=== PATIENT | female | born 2000 | race Caucasian/White ===

== ENCOUNTER 2020-08-24 12:34 | Emergency (ER) | payer MEDICAID ==
--- NOTE | 2020-08-24 13:28 | EDM.PDOC ---
ED HPI GENERAL MEDICAL PROBLEM - General Chief Complaint: General Stated Complaint: REACTIONS TO NEW MEDS Time Seen by Provider: 08/24/20 13:16 Source of Information: Reports: Patient, RN Notes Reviewed History Limitations: Reports: No Limitations - History of Present Illness INITIAL COMMENTS - FREE TEXT/NARRATIVE: 19-year-old female presents emergency department today with concerns about drug reaction. She was recently started on Abilify she has taken a total of 3 doses. She states this drug has increased her anxiety caused insomnia is having muscle twitching as she feels like it is hard for her to breathe she has some hot and cold flashes some flushing in her face. She did contact the physician who prescribed the medication unfortunately was unavailable nurses line recommended that she report to the emergency department for further evaluation - Related Data Allergies Allergy/AdvReac Type Severity Reaction Status Date / Time No Known Allergies Allergy Verified 08/24/20 12:58 Home Meds: Home Meds ARIPiprazole [Abilify] 5 mg PO BEDTIME 08/24/20 [History] Ferrous Sulfate 325 mg PO DAILY 08/24/20 [History] LORazepam [Ativan] 0.5 mg PO BID 08/24/20 [History] Sertraline [Zoloft] 150 mg PO BEDTIME 08/24/20 [History] Zolpidem [Ambien] 5 mg PO BEDTIME PRN 08/24/20 [History] atoMOXetine HCl [Strattera] 80 mg PO DAILY 08/24/20 [History] norgestimate-ethinyl estradioL [Bzl-Ef-Gxhgpjzm Tablet] 1 tab PO DAILY 08/24/20 [History] Past Medical History Psychiatric History: Reports: ADHD, Autism, Depression Hematologic History: Reports: Anemia Social & Family History - Tobacco Use Tobacco Use Status *Q: Never Tobacco User ED ROS GENERAL - Review of Systems Review Of Systems: See Below Constitutional: Reports: Night Sweats HEENT: Reports: Throat Pain, Throat Swelling Respiratory: Reports: No Symptoms Cardiovascular: Reports: No Symptoms GI/Abdominal: Reports: No Symptoms Musculoskeletal: Reports: Muscle Pain Skin: Reports: No Symptoms Neurological: Reports: No Symptoms Psychiatric: Reports: Anxiety ED EXAM, GENERAL - Physical Exam Exam: See Below Exam Limited By: No Limitations General Appearance: Alert, Mild Distress Ears: Normal External Exam, Normal Canal, Hearing Grossly Normal, Normal TMs Nose: Normal Inspection, Normal Mucosa, No Blood Throat/Mouth: Normal Inspection, Normal Lips, Normal Teeth, Normal Gums, Normal Oropharynx, Normal Voice, No Airway Compromise Head: Atraumatic, Normocephalic Neck: Normal Inspection, Supple, Non-Tender, Full Range of Motion Respiratory/Chest: No Respiratory Distress, Lungs Clear, Normal Breath Sounds, No Accessory Muscle Use, Chest Non-Tender Cardiovascular: Regular Rate, Rhythm, No Murmur GI/Abdominal: Soft, Non-Tender Course - Vital Signs Last Recorded V/S: Last Vital Signs Temp 96.8 F L 08/24/20 13:03 Pulse 113 H 08/24/20 13:03 Resp 18 08/24/20 13:03 BP 115/80 08/24/20 13:03 Pulse Ox 99 08/24/20 13:03 Departure - Departure Time of Disposition: 13:27 Disposition: Home, Self-Care 01 Condition: Fair Clinical Impression: Drug reaction Qualifiers: Encounter type: initial encounter Qualified Code(s): T50.905A - Adverse effect of unspecified drugs, medicaments and biological substances, initial encounter - Discharge Information Referrals: Laura Latham MD [Primary Care Provider] - Additional Instructions: Recommend stopping Abilify for now until reevaluated by the prescribing physician, call return to the emergency department worsening of symptoms Sepsis Event Note (ED) - Evaluation Sepsis Screening Result: No Definite Risk - Focused Exam Vital Signs: Vital Signs Temp Pulse Resp BP Pulse Ox 08/24/20 13:03 96.8 F L 113 H 18 115/80 99 08/24/20 12:57 96.8 F L 113 H 18 115/80 99 - Assessment/Plan Plan: Assessment Acuity = acute Site and laterality = possible adverse reactions to to medication Etiology = Abilify Manifestations = none Location of injury = Home Lab values = none Plan I did offer further blood work for an evaluation she declined at this time, recommend she stop the medication she will have a follow-up appointment with her prescribing physician on Friday of this week call or return to the emergency department worsening of symptoms This note was dictated using [employer] voice recognition software please call with any questions on syntax or grammar.
== END 2020-08-24 13:43 | disposition home or self-care (01) ==
LOC: JP.ED 12:34
DX: G47.00 Insomnia, unspecified (principal); F41.9 Anxiety disorder, unspecified; T43.595A Adverse effect of other antipsychotics and neuroleptics, initial encounter; D64.9 Anemia, unspecified; Z79.899 Other long term (current) drug therapy
CPT/HCPCS: 99283

== ENCOUNTER 2021-06-06 11:36 | Emergency (ER) | payer MEDICAID ==
[2021-06-06] MEDS ORDERED: Lactated Ringers 1,000 ML IV ONE ×2 (11:53→13:38)
[2021-06-06 13:37] LABS: CORONAVIRUS COVID-19 NAA POSITIVE (NEGATIVE)
[2021-06-06] MEDS ORDERED: cefTRIAXone 1 GM in Sodium Chloride 0.9% 50 ML IV ONE (13:39)
[2021-06-06] MEDS ORDERED: Sodium Chloride 0.9% 1,000 ML IV ONE (13:40)
[2021-06-06] MEDS ORDERED: Azithromycin 500 MG in Sodium Chloride 0.9% 250 ML IV ONE (13:41)
[2021-06-06] MEDS ORDERED: REMDESIVIR 200 MG in Sodium Chloride 0.9% 250 ML IV ONE ×2 (14:20→16:00)
[2021-06-06] MEDS ORDERED: Sodium Chloride 0.9% 100 ML IV SCH (14:45)
[2021-06-06] MEDS ORDERED: Iopamidol 755 Mg/ML 100 ML Bottle IV SCH (14:45)
[2021-06-06] MEDS ORDERED: Dexamethasone 4 MG/ML SDV IVPUSH SCH (15:00)
== END 2021-06-06 17:16 | disposition home or self-care (01) ==
LOC: JP.ED 11:36
DX: U07.1 COVID-19 (principal); J12.82 Pneumonia due to coronavirus disease 2019; E86.0 Dehydration
CPT/HCPCS: 0241U; 36415; 71045; 71275; 80048; 80076; 81001; 81025; 82728; 83605; 83615; 84145; 85025; 85379; 86140; 87040; 96365; 96368; 99285; J0456; J0696; J1100; J7030; J7050; J7120; Q9967

== ENCOUNTER 2022-11-10 10:32 | Emergency (ER) | payer MEDICAID | END 2022-11-10 11:54 | disposition home or self-care (01) | LOC: JP.ED 10:32 | DX: H60.502 Unspecified acute noninfective otitis externa, left ear (principal); Z79.899 Other long term (current) drug therapy | CPT/HCPCS: 99282 ==

== ENCOUNTER 2023-09-21 20:15 | Emergency (ER) | payer MEDICAID ==
[2023-09-21] MEDS: Doxycycline 100 MG Cap PO ONE (21:06)
== END 2023-09-21 21:25 | disposition home or self-care (01) ==
LOC: JP.ED 20:15
DX: S00.06XA Insect bite (nonvenomous) of scalp, initial encounter (principal); J45.909 Unspecified asthma, uncomplicated; Z79.899 Other long term (current) drug therapy; Z79.51 Long term (current) use of inhaled steroids; Z86.16 Personal history of COVID-19; W57.XXXA Bitten or stung by nonvenomous insect and other nonvenomous arthropods, initial encounter
CPT/HCPCS: 99281; A9270

== ENCOUNTER 2024-01-20 16:52 | Inpatient (IN) | payer MEDICAID ==
[2024-01-20] MEDS: LORazepam 0.5 MG Tab PO ONE (17:57)
[2024-01-20] MEDS ORDERED: Sennosides/Docusate Sodium 50-8.6 MG Tab PO PRN (18:15)
[2024-01-20] MEDS ORDERED: Ondansetron 4 MG/2 ML SDV IV PRN (18:15)
[2024-01-20] MEDS ORDERED: Acetaminophen/HYDROcodone 325-5 MG Tab PO PRN (18:15)
[2024-01-20] MEDS ORDERED: Sodium Chloride 0.9% 10 ML Syringe FLUSH PRN (18:15)
[2024-01-20] MEDS ORDERED: Ondansetron 4 MG Tab.DIS PO PRN (18:15)
[2024-01-20] MEDS ORDERED: Magnesium Hydroxide 400 MG/5 ML Susp 30 ML Cup PO PRN (18:15)
[2024-01-20] MEDS ORDERED: LORazepam 2 MG/ML SDV IVPUSH PRN (18:15)
[2024-01-20] MEDS: LORazepam 1 MG Tab PO ONE (18:17)
[2024-01-20] MEDS: metroNIDAZOLE/Normal Saline 500 MG in Premix Bag 1 BAG IV SCH ×2 (19:39→19:48)
[2024-01-20] MEDS: Sodium Chloride 0.9% 1,000 ML IV SCH (19:45)
[2024-01-20 19:59] LABS: APPEARANCE,URINE SLIGHTLY CLOUDY (CLEAR); BILIRUBIN,URINE NEGATIVE (NEGATIVE); COLOR,URINE YELLOW (YELLOW); GLUCOSE,URINE NEGATIVE (NEGATIVE); KETONES,URINE NEGATIVE (NEGATIVE); LEUKOCYTE ESTERASE,URINE NEGATIVE (NEGATIVE); NITRITE,URINE NEGATIVE (NEGATIVE); OCCULT BLOOD,URINE NEGATIVE (NEGATIVE); PROTEIN,URINE NEGATIVE (NEGATIVE); UROBILINOGEN,URINE 0.2 EU/dL (0.2-1.0)
[2024-01-20 20:05] LABS: AMORPHOUS SEDIMENT,URINE NOT SEEN; BACTERIA,URINE FEW; EPITHELIAL CELLS,URINE FEW; MUCUS,URINE NOT SEEN; RBC,URINE 0-5 (0-5); WBC,URINE 0-5 (0-5)
[2024-01-20] MEDS: Cyclobenzaprine 10 MG Tab PO SCH (21:47)
[2024-01-20] MEDS: risperiDONE 0.5 MG Tab PO SCH (21:47)
[2024-01-20] MEDS: Ciprofloxacin in D5W 400 MG in Premix Bag 1 BAG IV SCH (21:48)
[2024-01-21 04:53] LABS: HEMATOCRIT 37.2 % (34.3-46.0); HEMOGLOBIN 13.1 g/dL (11.2-15.5); MEAN CORPUSCULAR HGB CONC 35.2 g/dL (31.6-35.5); MEAN CORPUSCULAR VOLUME 82.3 fL (81.4-99.0); RED BLOOD CELL COUNT 4.52 M/uL (3.77-5.24); WHITE BLOOD CELL COUNT,WBC 17.7 K/uL (3.2-11.0)
[2024-01-21 05:13] LABS: ALANINE AMINOTRANSFERASE,ALT 22 U/L (12-78); ALKALINE PHOSPHATASE 101 U/L (46-116); ASPARTATE AMNIOTRANSFERASE,AST 40 U/L (15-37); BILIRUBIN TOTAL 0.4 mg/dL (0.2-1.0); BLOOD UREA NITROGEN,BUN 2 mg/dL (7-18); CALCIUM 8.8 mg/dL (8.5-10.1); CARBON DIOXIDE,CO2 19 mmol/L (21-32); CHLORIDE,CL 104 mmol/L (100-108); CREATININE 0.7 mg/dL (0.6-1.0); EST CRCL DRUG DOSING (CG) 115.01 mL/min; ESTIMATED GFR 123 mL/min (>60); GLUCOSE RANDOM 91 mg/dL (74-106); POTASSIUM,K 3.6 mmol/L (3.6-5.2); PROTEIN TOTAL,TP 6.4 g/dL (6.4-8.2); SODIUM,NA 137 mmol/L (140-148)
[2024-01-21] MEDS: Pantoprazole 40 MG Tab.CR PO SCH (05:21)
[2024-01-21] MEDS: Calcium Carbonate 500 MG Tab.Chew PO PRN (05:21)
[2024-01-21 05:22] LABS: A/G RATIO 0.6 (1.2-2.2); ALBUMIN 2.3 g/dL (3.4-5.0); MAGNESIUM 1.9 mg/dL (1.8-2.4)
[2024-01-21 05:29] LABS: ANION GAP 17.6 mmol/L (5.0-14.0)
[2024-01-21] MEDS: Magnesium Oxide 400 MG Tab PO SCH (08:37)
[2024-01-21] MEDS: Docusate Sodium 100 MG Cap PO SCH (08:38)
[2024-01-21] MEDS: Loratadine 10 MG Tab PO SCH (08:39)
[2024-01-21] MEDS: Ferrous Sulfate 325 MG Tab PO SCH (08:39)
[2024-01-21] MEDS: Escitalopram 10 MG Tab PO SCH (08:39)
[2024-01-21] MEDS: Pregabalin 25 MG Cap PO SCH (08:45)
[2024-01-21] MEDS ORDERED: DESOGESTREL ETHINYL ESTRADIOL PO SCH (09:00)
[2024-01-21] MEDS: ClonazePAM 0.5 MG Tab PO SCH (10:47)
[2024-01-21] MEDS: Pantoprazole 40 MG Tab.CR PO ONE (21:38)
[2024-01-22] MEDS: Acetaminophen 325 MG Tab PO PRN (04:09)
[2024-01-22] MEDS: LORazepam 0.5 MG Tab PO PRN (04:40)
[2024-01-22 05:27] LABS: BASOPHILS ABSOLUTE AUTO 0.05 K/uL (0.00-0.10); BASOPHILS PERCENT AUTO 0.3 % (0.1-1.3); EOSINOPHILS ABSOLUTE AUTO 1.91 K/uL (0.00-0.40); EOSINOPHILS PERCENT AUTO 11.3 % (0.0-5.4); HEMATOCRIT 34.7 % (34.3-46.0); HEMOGLOBIN 11.9 g/dL (11.2-15.5); IMMATURE GRAN ABSOLUTE AUTO 0.12 K/uL (0.00-0.23); IMMATURE GRAN PERCENT AUTO 0.7 % (0.0-0.7); LYMPHOCYTES ABSOLUTE AUTO 3.15 K/uL (0.8-3.3); LYMPHOCYTES PERCENT AUTO 18.7 % (11.4-47.7); MEAN CORPUSCULAR HEMOGLOBIN 28.7 pg (31.6-35.5); MEAN CORPUSCULAR HGB CONC 34.3 g/dL (31.6-35.5); MEAN CORPUSCULAR VOLUME 83.6 fL (81.4-99.0); MONOCYTES ABSOLUTE AUTO 1.44 K/uL (0.20-0.90); MONOCYTES PERCENT AUTO 8.5 % (3.3-12.6); NEUTROPHILS ABSOLUTE AUTO 10.18 K/uL (1.0-7.6); NEUTROPHILS PERCENT AUTO 60.5 % (40.0-78.1); PLATELET COUNT,PLT 359 K/uL (130-375); RED BLOOD CELL COUNT 4.15 M/uL (3.77-5.24); WHITE BLOOD CELL COUNT,WBC 16.9 K/uL (3.2-11.0)
[2024-01-22 05:54] LABS: A/G RATIO 0.5 (1.2-2.2); ALANINE AMINOTRANSFERASE,ALT 21 U/L (12-78); ALBUMIN 2.1 g/dL (3.4-5.0); ALKALINE PHOSPHATASE 93 U/L (46-116); ASPARTATE AMNIOTRANSFERASE,AST 17 U/L (15-37); BILIRUBIN TOTAL 0.3 mg/dL (0.2-1.0); BLOOD UREA NITROGEN,BUN 1 mg/dL (7-18); CALCIUM 8.6 mg/dL (8.5-10.1); CARBON DIOXIDE,CO2 24 mmol/L (21-32); CHLORIDE,CL 107 mmol/L (100-108); CREATININE 0.8 mg/dL (0.6-1.0); EST CRCL DRUG DOSING (CG) 100.63 mL/min; ESTIMATED GFR 105 mL/min (>60); GLUCOSE RANDOM 93 mg/dL (74-106); POTASSIUM,K 3.1 mmol/L (3.6-5.2); SODIUM,NA 142 mmol/L (140-148)
[2024-01-22 05:55] LABS: ANION GAP 14.1 mmol/L (5.0-14.0)
[2024-01-22] MEDS: Pantoprazole 40 MG Tab.CR PO SCH (08:42)
[2024-01-22] MEDS: Ketorolac 15 MG/ML SDV IVPUSH ONE (08:44)
[2024-01-22] MEDS: Potassium Chloride 20 MEQ Tab.ER PO SCH (08:49)
[2024-01-22] MEDS: Potassium Chloride 10 MEQ in Premix Bag 1 BAG IV SCH (09:59)
[2024-01-22] MEDS: metroNIDAZOLE 250 MG Tab PO SCH (14:45)
[2024-01-23] MEDS: LISDEXAMFETAMINE 60 MG PO SCH (02:36)
[2024-01-23 05:14] LABS: BASOPHILS ABSOLUTE AUTO 0.06 K/uL (0.00-0.10); BASOPHILS PERCENT AUTO 0.4 % (0.1-1.3); EOSINOPHILS ABSOLUTE AUTO 2.18 K/uL (0.00-0.40); HEMATOCRIT 34.8 % (34.3-46.0); HEMOGLOBIN 11.9 g/dL (11.2-15.5); IMMATURE GRAN ABSOLUTE AUTO 0.14 K/uL (0.00-0.23); LYMPHOCYTES PERCENT AUTO 26.2 % (11.4-47.7); MEAN CORPUSCULAR HEMOGLOBIN 28.8 pg (31.6-35.5); MEAN CORPUSCULAR HGB CONC 34.2 g/dL (31.6-35.5); MEAN CORPUSCULAR VOLUME 84.3 fL (81.4-99.0); MONOCYTES PERCENT AUTO 9.6 % (3.3-12.6); NEUTROPHILS ABSOLUTE AUTO 6.95 K/uL (1.0-7.6); NEUTROPHILS PERCENT AUTO 47.8 % (40.0-78.1); PLATELET COUNT,PLT 361 K/uL (130-375); RED BLOOD CELL COUNT 4.13 M/uL (3.77-5.24); WHITE BLOOD CELL COUNT,WBC 14.5 K/uL (3.2-11.0)
[2024-01-23 05:36] LABS: A/G RATIO 0.6 (1.2-2.2); ALANINE AMINOTRANSFERASE,ALT 16 U/L (12-78); ALBUMIN 2.1 g/dL (3.4-5.0); ALKALINE PHOSPHATASE 89 U/L (46-116); ANION GAP 7.9 mmol/L (5.0-14.0); ASPARTATE AMNIOTRANSFERASE,AST 13 U/L (15-37); BILIRUBIN TOTAL 0.2 mg/dL (0.2-1.0); BLOOD UREA NITROGEN,BUN 2 mg/dL (7-18); C-REACTIVE PROTEIN 5.89 mg/dL (<0.50); CALCIUM 8.8 mg/dL (8.5-10.1); CARBON DIOXIDE,CO2 26 mmol/L (21-32); CHLORIDE,CL 106 mmol/L (100-108); CREATININE 0.8 mg/dL (0.6-1.0); EST CRCL DRUG DOSING (CG) 100.63 mL/min; ESTIMATED GFR 105 mL/min (>60); GLUCOSE RANDOM 87 mg/dL (74-106); POTASSIUM,K 3.8 mmol/L (3.6-5.2); PROTEIN TOTAL,TP 5.9 g/dL (6.4-8.2); SODIUM,NA 140 mmol/L (140-148)
== END 2024-01-23 10:31 | disposition home or self-care (01) | DRG 872 ==
LOC: JP.MS 16:52
PROVIDERS: ADMIT Hospitalist; ATTEND Hospitalist
DX: A41.9 Sepsis, unspecified organism (principal); N39.0 Urinary tract infection, site not specified; F84.0 Autistic disorder; A09 Infectious gastroenteritis and colitis, unspecified; K76.89 Other specified diseases of liver; F41.9 Anxiety disorder, unspecified; F32.A Depression, unspecified; M79.7 Fibromyalgia; J45.909 Unspecified asthma, uncomplicated; H54.7 Unspecified visual loss; F90.9 Attention-deficit hyperactivity disorder, unspecified type; G43.909 Migraine, unspecified, not intractable, without status migrainosus; Z79.51 Long term (current) use of inhaled steroids; Z79.899 Other long term (current) drug therapy; Z86.16 Personal history of COVID-19
CPT/HCPCS: 36415; 80053; 81001; 83735; 85025; 85027; 86140; 87040; 99223; 99232; 99239; A9270-GY; J0744; J1836; J1885; J3480; J7030

== ENCOUNTER 2024-01-29 18:16 | Emergency (ER) | payer MEDICAID | END 2024-01-29 20:17 | disposition home or self-care (01) | LOC: JP.ED 18:16 | DX: R07.89 Other chest pain (principal); Z86.16 Personal history of COVID-19; Z79.899 Other long term (current) drug therapy | CPT/HCPCS: 93010; 99283; 99284 ==

== ENCOUNTER 2024-03-06 11:16 | Inpatient (IN) | payer MEDICAID ==
[2024-03-06] MEDS: Sodium Chloride 0.9% 500 ML IV ONE ×5 (12:07→17:05)
[2024-03-06 12:13] LABS: BASOPHILS ABSOLUTE AUTO 0.05 K/uL (0.00-0.10); BASOPHILS PERCENT AUTO 0.2 % (0.1-1.3); EOSINOPHILS ABSOLUTE AUTO 0.74 K/uL (0.00-0.40); EOSINOPHILS PERCENT AUTO 3.1 % (0.0-5.4); HEMATOCRIT 35.9 % (34.3-46.0); HEMOGLOBIN 11.5 g/dL (11.2-15.5); IMMATURE GRAN ABSOLUTE AUTO 0.27 K/uL (0.00-0.23); IMMATURE GRAN PERCENT AUTO 1.1 % (0.0-0.7); LYMPHOCYTES PERCENT AUTO 18.3 % (11.4-47.7); MEAN CORPUSCULAR HEMOGLOBIN 28.8 pg (31.6-35.5); MONOCYTES ABSOLUTE AUTO 1.49 K/uL (0.20-0.90); MONOCYTES PERCENT AUTO 6.2 % (3.3-12.6); NEUTROPHILS ABSOLUTE AUTO 17.08 K/uL (1.0-7.6); NEUTROPHILS PERCENT AUTO 71.1 % (40.0-78.1); PLATELET COUNT,PLT 476 K/uL (130-375); RED BLOOD CELL COUNT 3.99 M/uL (3.77-5.24)
[2024-03-06 12:39] LABS: LACTIC ACID 2.3 mmol/L (0.4-2.0)
[2024-03-06 12:46] LABS: A/G RATIO 0.4 (1.2-2.2); ALANINE AMINOTRANSFERASE,ALT 22 U/L (12-78); ALBUMIN 1.9 g/dL (3.4-5.0); ALKALINE PHOSPHATASE 155 U/L (46-116); ASPARTATE AMNIOTRANSFERASE,AST 21 U/L (15-37); BILIRUBIN TOTAL 0.2 mg/dL (0.2-1.0); BLOOD UREA NITROGEN,BUN 4 mg/dL (7-18); C-REACTIVE PROTEIN 3.18 mg/dL (<0.50); CALCIUM 8.7 mg/dL (8.5-10.1); CARBON DIOXIDE,CO2 26 mmol/L (21-32); CHLORIDE,CL 102 mmol/L (100-108); CREATININE 0.9 mg/dL (0.6-1.0); EST CRCL DRUG DOSING (CG) 89.45 mL/min; ESTIMATED GFR 91 mL/min (>60); GLUCOSE RANDOM 94 mg/dL (74-106); POTASSIUM,K 3.4 mmol/L (3.6-5.2); PROTEIN TOTAL,TP 6.7 g/dL (6.4-8.2); SODIUM,NA 138 mmol/L (140-148)
[2024-03-06 12:48] LABS: APPEARANCE,URINE CLEAR (CLEAR); BILIRUBIN,URINE NEGATIVE (NEGATIVE); COLOR,URINE YELLOW (YELLOW); GLUCOSE,URINE NEGATIVE (NEGATIVE); KETONES,URINE NEGATIVE (NEGATIVE); LEUKOCYTE ESTERASE,URINE NEGATIVE (NEGATIVE); NITRITE,URINE NEGATIVE (NEGATIVE); OCCULT BLOOD,URINE NEGATIVE (NEGATIVE); PROTEIN,URINE NEGATIVE (NEGATIVE); UROBILINOGEN,URINE 0.2 EU/dL (0.2-1.0)
[2024-03-06 12:49] LABS: ANION GAP 13.4 mmol/L (5.0-14.0)
[2024-03-06 12:53] LABS: AMORPHOUS SEDIMENT,URINE NOT SEEN; BACTERIA,URINE FEW; EPITHELIAL CELLS,URINE RARE; MUCUS,URINE NOT SEEN; RBC,URINE NOT SEEN (0-5); WBC,URINE 0-5 (0-5)
[2024-03-06] MEDS: Piperacillin/Tazobactam 4.5 GM in Sodium Chloride 0.9% 100 ML IV ONE (13:03)
[2024-03-06] MEDS: Vancomycin 2 GM in Sodium Chloride 0.9% 500 ML IV ONE (13:48)
[2024-03-06] MEDS: Potassium Chloride 20 MEQ Tab.ER PO ONE (15:38)
[2024-03-06] MEDS: Sodium Chloride 0.9% 10 ML Syringe FLUSH ONE (15:46)
[2024-03-06] MEDS: Sodium Chloride 0.9% 60 ML IV SCH (15:46)
[2024-03-06] MEDS: Iopamidol 612 MG/ML 100 ML Bottle IV SCH (15:46)
[2024-03-06] MEDS: Sodium Chloride 0.9% 300 ML IV ONE (16:32)
[2024-03-06] MEDS ORDERED: Albuterol 0.083% 2.5 MG/3 ML Neb Soln NEB PRN (18:08)
[2024-03-06] MEDS ORDERED: Sodium Chloride 0.9% 10 ML Syringe FLUSH PRN (18:08)
[2024-03-06] MEDS ORDERED: Albuterol 6.7 GM Inhaler INH PRN (18:08)
[2024-03-06] MEDS ORDERED: oxyCODONE 5 MG Tab PO PRN (18:08)
[2024-03-06] MEDS: metroNIDAZOLE/Normal Saline 500 MG in Premix Bag 1 BAG IV SCH (18:10)
[2024-03-06] MEDS: Ciprofloxacin in D5W 400 MG in Premix Bag 1 BAG IV SCH (19:19)
[2024-03-06] MEDS: methylPREDNISolone Sodium Succinate 40 MG/1 ML SDV IVPUSH SCH (19:22)
[2024-03-06] MEDS: Cyclobenzaprine 10 MG Tab PO PRN (20:19)
[2024-03-06] MEDS: Melatonin 3 MG Tab PO SCH (20:20)
[2024-03-06] MEDS: Magnesium Oxide 400 MG Tab PO SCH (20:21)
[2024-03-06] MEDS: risperiDONE 0.5 MG Tab PO SCH (20:22)
[2024-03-06] MEDS ORDERED: MELATONIN 10 MG PO SCH (21:00)
[2024-03-06] MEDS: Sodium Chloride 0.9% 1,000 ML IV SCH (22:10)
[2024-03-07] MEDS: LORazepam 0.5 MG Tab PO PRN (04:25)
[2024-03-07 05:39] LABS: HEMATOCRIT 32.3 % (34.3-46.0); HEMOGLOBIN 10.1 g/dL (11.2-15.5); MEAN CORPUSCULAR HEMOGLOBIN 28.4 pg (31.6-35.5); MEAN CORPUSCULAR HGB CONC 31.3 g/dL (31.6-35.5); MEAN CORPUSCULAR VOLUME 90.7 fL (81.4-99.0); RED BLOOD CELL COUNT 3.56 M/uL (3.77-5.24); WHITE BLOOD CELL COUNT,WBC 12.6 K/uL (3.2-11.0)
[2024-03-07 05:55] LABS: CALCIUM 8.6 mg/dL (8.5-10.1); CREATININE 0.8 mg/dL (0.6-1.0); EST CRCL DRUG DOSING (CG) 100.63 mL/min; MAGNESIUM 1.7 mg/dL (1.8-2.4)
[2024-03-07] MEDS: Loratadine 10 MG Tab PO SCH (08:34)
[2024-03-07] MEDS: Escitalopram 10 MG Tab PO SCH (08:35)
[2024-03-07] MEDS: DESOGESTREL ETHINYL ESTRADIOL PO SCH (08:37)
[2024-03-07] MEDS: Bisacodyl 5 MG Tab PO ONE ×2 (08:49→20:26)
[2024-03-07] MEDS ORDERED: Magnesium Oxide 400 MG Tab PO SCH (09:00)
[2024-03-07] MEDS: Magnesium Oxide 400 MG Tab PO SCH (09:16)
[2024-03-07] MEDS: Pregabalin 25 MG Cap PO SCH (09:16)
[2024-03-07] MEDS: Acetaminophen 325 MG Tab PO PRN (10:48)
[2024-03-07] MEDS: Magnesium Sulfate/Water Premix 2 GM in Premix Bag 1 BAG IV SCH (10:55)
[2024-03-07] MEDS: Polyethylene Glycol 3350 Powder 238 GM Bot PO ONE (17:00)
[2024-03-07] MEDS: Promethazine 12.5 MG in Sodium Chloride 0.9% 50 ML IV PRN (23:04)
[2024-03-08 01:44] LABS: HEMATOCRIT 33.9 % (34.3-46.0); HEMOGLOBIN 11.2 g/dL (11.2-15.5); MEAN CORPUSCULAR HEMOGLOBIN 28.9 pg (31.6-35.5); MEAN CORPUSCULAR VOLUME 87.6 fL (81.4-99.0); RED BLOOD CELL COUNT 3.87 M/uL (3.77-5.24); WHITE BLOOD CELL COUNT,WBC 20.9 K/uL (3.2-11.0)
[2024-03-08 02:22] LABS: CREATININE 0.6 mg/dL (0.6-1.0); EST CRCL DRUG DOSING (CG) 134.18 mL/min; MAGNESIUM 2.2 mg/dL (1.8-2.4)
[2024-03-08 02:28] LABS: CALCIUM 8.4 mg/dL (8.5-10.1)
[2024-03-08 02:44] LABS: ANION GAP 17.6 mmol/L (5.0-14.0)
[2024-03-08 02:45] LABS: POTASSIUM,K 5.6 mmol/L (3.6-5.2)
[2024-03-08] MEDS ORDERED: fentaNYL 100 MCG/2 ML SDV ONE (09:46)
[2024-03-08] MEDS ORDERED: Propofol 200 MG/20 ML SDV ONE (09:46)
[2024-03-08] MEDS ORDERED: Midazolam 1 MG/ML 2 ML SDV ONE (09:46)
[2024-03-08] MEDS ORDERED: Lidocaine 1% 2 ML ONE (09:48)
[2024-03-08] MEDS ORDERED: metroNIDAZOLE/Normal Saline 500 MG in Premix Bag 1 BAG IV SCH (18:00)
[2024-03-08] MEDS: metroNIDAZOLE 250 MG Tab PO SCH (20:00)
[2024-03-08] MEDS: Ciprofloxacin 500 MG Tab PO SCH (20:00)
[2024-03-08] MEDS: Lactobacillus Rhamnosus GG (Probiotic) Cap PO SCH (20:00)
[2024-03-09] MEDS: predniSONE 20 MG Tab PO SCH (08:40)
== END 2024-03-09 10:23 | disposition home or self-care (01) | DRG 872 ==
LOC: JP.ED 11:16 → JP.MS 16:36
PROVIDERS: ADMIT Hospitalist; ATTEND Internal Medicine
PROC: 3E03329 Introduction of Other Anti-infective into Peripheral Vein, Percutaneous Approach (ICD-10-PCS; 2024-03-06)
PROC: 0DBK8ZX Excision of Ascending Colon, Via Natural or Artificial Opening Endoscopic, Diagnostic (ICD-10-PCS; 2024-03-08)
PROC: 0DBN8ZX Excision of Sigmoid Colon, Via Natural or Artificial Opening Endoscopic, Diagnostic (ICD-10-PCS; 2024-03-08)
PROC: 0DBM8ZX Excision of Descending Colon, Via Natural or Artificial Opening Endoscopic, Diagnostic (ICD-10-PCS; 2024-03-08)
PROC: 0DB78ZX Excision of Stomach, Pylorus, Via Natural or Artificial Opening Endoscopic, Diagnostic (ICD-10-PCS; 2024-03-08)
PROC: 0DB98ZX Excision of Duodenum, Via Natural or Artificial Opening Endoscopic, Diagnostic (ICD-10-PCS; principal; 2024-03-08 11:00)
DX: A41.9 Sepsis, unspecified organism (principal); K51.90 Ulcerative colitis, unspecified, without complications; F84.0 Autistic disorder; A09 Infectious gastroenteritis and colitis, unspecified; E87.6 Hypokalemia; E86.0 Dehydration; K63.89 Other specified diseases of intestine; J45.909 Unspecified asthma, uncomplicated; M79.7 Fibromyalgia; F41.9 Anxiety disorder, unspecified; H54.7 Unspecified visual loss; F32.A Depression, unspecified; Z79.899 Other long term (current) drug therapy; Z79.51 Long term (current) use of inhaled steroids; Z98.890 Other specified postprocedural states
CPT/HCPCS: 00813-QZ; 36415; 71260; 74177; 80048; 80053; 81001; 83605; 83735; 84145; 85025; 85027; 86140; 87040; 87046; 87427; 87493; 88305; 88342; 89055; 96361; 96365; 96366; 96367; 99222; 99232; 99238; 99285; 99285-25; A9270-GY; J0744; J1836; J2250; J2543; J2550; J2704; J2919; J3010; J3475; J3490; J7030; J7040; J7512; Q9967

== ENCOUNTER 2024-03-25 10:41 | Emergency (ER) | payer MEDICAID ==
[2024-03-25] MEDS ORDERED: Sodium Chloride 0.9% 500 ML IV SCH (12:30)
[2024-03-25 12:33] LABS: BASOPHILS ABSOLUTE AUTO 0.03 K/uL (0.00-0.10); BASOPHILS PERCENT AUTO 0.2 % (0.1-1.3); EOSINOPHILS ABSOLUTE AUTO 0.31 K/uL (0.00-0.40); EOSINOPHILS PERCENT AUTO 2.2 % (0.0-5.4); HEMATOCRIT 33.6 % (34.3-46.0); HEMOGLOBIN 10.6 g/dL (11.2-15.5); IMMATURE GRAN ABSOLUTE AUTO 0.07 K/uL (0.00-0.23); IMMATURE GRAN PERCENT AUTO 0.5 % (0.0-0.7); LYMPHOCYTES ABSOLUTE AUTO 2.11 K/uL (0.8-3.3); LYMPHOCYTES PERCENT AUTO 14.8 % (11.4-47.7); MEAN CORPUSCULAR HEMOGLOBIN 29.1 pg (31.6-35.5); MEAN CORPUSCULAR HGB CONC 31.5 g/dL (31.6-35.5); MEAN CORPUSCULAR VOLUME 92.3 fL (81.4-99.0); MONOCYTES ABSOLUTE AUTO 0.72 K/uL (0.20-0.90); NEUTROPHILS ABSOLUTE AUTO 11.04 K/uL (1.0-7.6); NEUTROPHILS PERCENT AUTO 77.3 % (40.0-78.1); PLATELET COUNT,PLT 387 K/uL (130-375); RED BLOOD CELL COUNT 3.64 M/uL (3.77-5.24); WHITE BLOOD CELL COUNT,WBC 14.3 K/uL (3.2-11.0)
[2024-03-25 12:54] LABS: A/G RATIO 0.7 (1.2-2.2); ALANINE AMINOTRANSFERASE,ALT 19 U/L (12-78); ALBUMIN 2.8 g/dL (3.4-5.0); ALKALINE PHOSPHATASE 91 U/L (46-116); ASPARTATE AMNIOTRANSFERASE,AST 8 U/L (15-37); BILIRUBIN TOTAL 0.3 mg/dL (0.2-1.0); BLOOD UREA NITROGEN,BUN 12 mg/dL (7-18); CALCIUM 9.2 mg/dL (8.5-10.1); CARBON DIOXIDE,CO2 27 mmol/L (21-32); CHLORIDE,CL 102 mmol/L (100-108); EST CRCL DRUG DOSING (CG) 80.51 mL/min; ESTIMATED GFR 80 mL/min (>60); GLUCOSE RANDOM 93 mg/dL (74-106); POTASSIUM,K 3.5 mmol/L (3.6-5.2); SODIUM,NA 139 mmol/L (140-148)
[2024-03-25 12:59] LABS: ANION GAP 13.5 mmol/L (5.0-14.0)
[2024-03-25] MEDS: Iopamidol 612 MG/ML 100 ML Bottle IV ONE (13:42)
[2024-03-25] MEDS: Sodium Chloride 0.9% 60 ML IV SCH (13:42)
== END 2024-03-25 15:27 | disposition home or self-care (01) ==
LOC: JP.ED 10:41
DX: K51.911 Ulcerative colitis, unspecified with rectal bleeding (principal); J45.909 Unspecified asthma, uncomplicated; Z79.899 Other long term (current) drug therapy
CPT/HCPCS: 36415; 74177; 80053; 84145; 85025; 86140; 99284; J3490; Q9967

== ENCOUNTER 2024-04-17 03:45 | Emergency (ER) | payer MEDICAID ==
[2024-04-17 04:38] LABS: BASOPHILS ABSOLUTE AUTO 0.03 K/uL (0.00-0.10); BASOPHILS PERCENT AUTO 0.3 % (0.1-1.3); EOSINOPHILS ABSOLUTE AUTO 0.05 K/uL (0.00-0.40); EOSINOPHILS PERCENT AUTO 0.4 % (0.0-5.4); HEMATOCRIT 32.4 % (34.3-46.0); HEMOGLOBIN 9.9 g/dL (11.2-15.5); IMMATURE GRAN ABSOLUTE AUTO 0.12 K/uL (0.00-0.23); LYMPHOCYTES ABSOLUTE AUTO 4.49 K/uL (0.8-3.3); LYMPHOCYTES PERCENT AUTO 37.7 % (11.4-47.7); MEAN CORPUSCULAR HEMOGLOBIN 26.5 pg (31.6-35.5); MEAN CORPUSCULAR HGB CONC 30.6 g/dL (31.6-35.5); MEAN CORPUSCULAR VOLUME 86.6 fL (81.4-99.0); MONOCYTES ABSOLUTE AUTO 0.77 K/uL (0.20-0.90); MONOCYTES PERCENT AUTO 6.5 % (3.3-12.6); NEUTROPHILS ABSOLUTE AUTO 6.45 K/uL (1.0-7.6); NEUTROPHILS PERCENT AUTO 54.1 % (40.0-78.1); PLATELET COUNT,PLT 411 K/uL (130-375); RED BLOOD CELL COUNT 3.74 M/uL (3.77-5.24); WHITE BLOOD CELL COUNT,WBC 11.9 K/uL (3.2-11.0)
[2024-04-17 04:55] LABS: ALANINE AMINOTRANSFERASE,ALT 15 U/L (12-78); ALBUMIN 2.4 g/dL (3.4-5.0); ALKALINE PHOSPHATASE 90 U/L (46-116); ANION GAP 8.7 mmol/L (5.0-14.0); ASPARTATE AMNIOTRANSFERASE,AST 9 U/L (15-37); BILIRUBIN TOTAL 0.2 mg/dL (0.2-1.0); BLOOD UREA NITROGEN,BUN 4 mg/dL (7-18); CALCIUM 8.8 mg/dL (8.5-10.1); CARBON DIOXIDE,CO2 27 mmol/L (21-32); CHLORIDE,CL 107 mmol/L (100-108); CREATININE 0.9 mg/dL (0.6-1.0); ESTIMATED GFR 91 mL/min (>60); GLUCOSE RANDOM 85 mg/dL (74-106); POTASSIUM,K 3.6 mmol/L (3.6-5.2); PROTEIN TOTAL,TP 6.1 g/dL (6.4-8.2); SODIUM,NA 143 mmol/L (140-148)
[2024-04-17] MEDS: Sodium Chloride 0.9% 1,000 ML IV SCH (04:55)
[2024-04-17 05:04] LABS: A/G RATIO 0.7 (1.2-2.2)
[2024-04-17 05:56] LABS: APPEARANCE,URINE CLEAR (CLEAR); BILIRUBIN,URINE SMALL (NEGATIVE); COLOR,URINE YELLOW (YELLOW); GLUCOSE,URINE NEGATIVE (NEGATIVE); KETONES,URINE TRACE mg/dL (NEGATIVE); LEUKOCYTE ESTERASE,URINE NEGATIVE (NEGATIVE); NITRITE,URINE NEGATIVE (NEGATIVE); OCCULT BLOOD,URINE NEGATIVE (NEGATIVE); PROTEIN,URINE 30 mg/dL (NEGATIVE); UROBILINOGEN,URINE 0.2 EU/dL (0.2-1.0)
[2024-04-17 06:22] LABS: BACTERIA,URINE FEW; EPITHELIAL CELLS,URINE FEW; MUCUS,URINE NOT SEEN; RBC,URINE 0-5 (0-5); WBC,URINE 0-5 (0-5)
[2024-04-17] MEDS: methylPREDNISolone Sodium Succinate 125 MG/2 ML SDV IVPUSH ONE (06:36)
[2024-04-17] MEDS: Sodium Chloride 0.9% 500 ML IV ONE (08:00)
[2024-04-17] MEDS: Iopamidol 612 MG/ML 100 ML Bottle IV STA (09:23)
[2024-04-17] MEDS: Sodium Chloride 0.9% 80 ML IV STA (09:23)
== END 2024-04-17 10:40 | disposition home or self-care (01) ==
LOC: JP.ED 03:45
DX: K51.80 Other ulcerative colitis without complications (principal); R19.7 Diarrhea, unspecified; Z79.899 Other long term (current) drug therapy
CPT/HCPCS: 36415; 74177; 80053; 81001; 81025; 83605; 85025; 87046; 87427; 87493; 96361; 96374; 99284; J2919; J3490; J7030; J7040; Q9967

== ENCOUNTER 2024-11-19 09:27 | Emergency (ER) | payer MEDICAID ==
[2024-11-19 10:48] LABS: BASOPHILS ABSOLUTE AUTO 0.08 K/uL (0.00-0.10); BASOPHILS PERCENT AUTO 0.3 % (0.1-1.3); EOSINOPHILS ABSOLUTE AUTO 0.20 K/uL (0.00-0.40); EOSINOPHILS PERCENT AUTO 0.8 % (0.0-5.4); IMMATURE GRAN ABSOLUTE AUTO 0.22 K/uL (0.00-0.23); IMMATURE GRAN PERCENT AUTO 0.9 % (0.0-0.7); LYMPHOCYTES ABSOLUTE AUTO 3.78 K/uL (0.8-3.3); LYMPHOCYTES PERCENT AUTO 14.8 % (11.4-47.7); MONOCYTES ABSOLUTE AUTO 1.27 K/uL (0.20-0.90); MONOCYTES PERCENT AUTO 5.0 % (3.3-12.6); NEUTROPHILS ABSOLUTE AUTO 19.92 K/uL (1.0-7.6); NEUTROPHILS PERCENT AUTO 78.2 % (40.0-78.1); PLATELET COUNT,PLT 449 K/uL (130-375); RED BLOOD CELL COUNT 4.25 M/uL (3.77-5.24); WHITE BLOOD CELL COUNT,WBC 25.5 K/uL (3.2-11.0)
[2024-11-19 11:06] LABS: INR 1.0
[2024-11-19 11:10] LABS: A/G RATIO 0.7 (1.2-2.2); ALANINE AMINOTRANSFERASE,ALT 23 U/L (12-78); ASPARTATE AMNIOTRANSFERASE,AST 7 U/L (15-37); BILIRUBIN TOTAL 0.4 mg/dL (0.2-1.0); BLOOD UREA NITROGEN,BUN 13 mg/dL (7-18); CARBON DIOXIDE,CO2 29 mmol/L (21-32); CHLORIDE,CL 102 mmol/L (100-108); CREATININE 1.0 mg/dL (0.6-1.0); EST CRCL DRUG DOSING (CG) 80.51 mL/min; ESTIMATED GFR 80 mL/min (>60); GLUCOSE RANDOM 101 mg/dL (74-106); POTASSIUM,K 3.7 mmol/L (3.6-5.2); PROTEIN TOTAL,TP 6.9 g/dL (6.4-8.2); SODIUM,NA 141 mmol/L (140-148)
[2024-11-19] MEDS: Ondansetron 4 MG/2 ML SDV IVPUSH ONE (11:45)
[2024-11-19] MEDS ORDERED: Iopamidol 612 MG/ML 100 ML Bottle IV SCH (11:45)
[2024-11-19] MEDS: Iopamidol 612 MG/ML 100 ML Bottle IV ONE (11:59)
[2024-11-19] MEDS: Sodium Chloride 0.9% 10 ML Syringe FLUSH ONE ×2 (11:59→12:51)
== END 2024-11-19 13:50 | disposition home or self-care (01) ==
LOC: JP.ED 09:27
DX: K51.80 Other ulcerative colitis without complications (principal); Z79.899 Other long term (current) drug therapy; Z79.51 Long term (current) use of inhaled steroids
CPT/HCPCS: 36415; 74177; 80053; 83690; 85025; 85610; 96361; 96374; 96375; 99284; J1171; J2405; J7030; J7512; Q9967